=== PATIENT | male | born 1940 | race Caucasian/White ===

== ENCOUNTER 2018-01-23 09:48 | Observation (INO) ==
--- NOTE | 2018-01-23 17:28 | NM ---
EXAM DATE: 01/23/2018 4:43 PM EDT AGE/SEX: 78 years / Male INDICATIONS: Dyspnea. CLINICAL DATA: This is the patient's initial encounter. Patient reports that signs and symptoms have been present for 4 - 6 days and indicates a pain score of 0/10. MEDICAL/SURGICAL HISTORY: Alzheimer's disease. Pulmonary embolism. Prostatectomy. COMPARISON: No prior exams available for comparison. DOSE: 1 mCi Tc99m DTPA aerosol 8.4 mCi Tc99m MAA IV TECHNIQUE: Following five minutes of tidal breathing of DTPA aerosol, planar images of the lungs wer e performed in eight projections. The patient was then injected with MAA, and eight-view perfusion s can was performed. FINDINGS: There is a homogeneous pattern of aerosol delivery to the periphery of both lungs. No focal ventilat ory defects are seen. There is some decreased perfusion in the posterior medial right lung. The perfusion defect is larger than the ventilatory defect, but it is solitary. No other obvious perfusion defects are identified. CONCLUSION: 1. Solitary perfusion defect involving the posterior medial right lung, clearly out of proportion to the ventilatory defect. Isolated mismatch, indeterminate study for PE. Electronically signed by: Geo Woo MD 01/23/2018 5:27 PM EDT
[2018-01-23 18:29] LABS: Creatine Kinase 124 U/L (39-308)
[2018-01-23] MEDS: Sod Chloride 0.9% Inj 1,000 ML IV.CONT SCH (18:47)
[2018-01-23] MEDS ORDERED: Dextrose 50% in Water 50 ML Vial IV.PUSH PRN (19:14)
--- NOTE | 2018-01-23 19:25 | P.HPIM ---
History of Present Illness Primary Care Physician: UNKNOWN History of Present Illness: Mr. Ayala is a 78-year-old male. He has a past medical history of pulmonary embolism. Additionally, due to this, he is on Coumadin at baseline. The patient has early dementia and per himself and his family taking his medications on a regular basis has been a problem. INR is 1.0 today. He came in secondary to shortness of breath, cough, and chest pressure. D-dimer was elevated. CT scan could not be obtained due to reported allergy to iodine. Patient was sent to the [facility] for VQ scan. VQ scan was obtained and shows an intermediate risk for pulmonary embolism. His prior history of PE could represent findings seen on image. The area of poor perfusion is small. Either way, treatment would be the same which is maintaining his INR at a therapeutic level. No other complaints. He has full resolution of symptoms when seen. - Diagnosis (1) Acute dyspnea (2) Chest pain Review of Systems Constitutional: No fevers, no chills no night sweats, no fatigue, no weakness Eyes: No eye pain, no blurry vision, no loss of vision ENT: No sore throat, no ear pain, no rhinorrhea Cardiovascular: No chest pain, no tachycardia, no palpitations, no syncope Respiratory: No wheezing, cough, shortness of breath Gastrointestinal: No abdominal pain, no black tarry stools, no bright red blood per rectum, no vomiting, no diarrhea Musculoskeletal: No joint pain, no muscle cramps, no stiffness Integumentary: No rash, no ulcers, no drainage Neurologic: No sensory loss, no loss of motor function, no dizziness Psychiatric: No behavioral changes, no hallucinations, no suicidal ideations [facility] - History History Provided By: Patient, Family Member - Medical History Medical History: Medical History (Last Updated 01/23/18 @ 10:25 by Teresa Veras RN) Alzheimer disease High cholesterol Hx of colonic polyps Hx of pulmonary embolus Prostate disease - Surgical History Surgical History: Surgical History (Last Updated 01/23/18 @ 10:25 by Teresa Veras RN) History of prostate surgery - Family History Family History: Family History (Last Updated 01/23/18 @ 19:21 by Stephane Lujan MD) Other Prostate cancer Stroke - Tobacco History Second Hand Smoke Exposure: No Tobacco Use In Past 30 Days: No Smoking Status: Former smoker Tobacco Type: Cigarettes - Alcohol History How Often Do You Have a Drink Containing Alcohol: Never - Substance Use History Substance History: No History of Abuse Medications and Allergies Active Medications: Active Medications Al Hydroxide/Mg Hydroxide (Milk Of Magnphil Liq) 30 ml PO Q12H PRN PRN Reason: Mild Constipation Aspirin (Aspirin) 325 mg PO DAILY [facility] Atorvastatin Calcium (Lipitor) 20 mg PO HS [facility] Dextrose (D50w Vial) 50 ml IV.PUSH UNSCH PRN PRN Reason: PER HYPOGLYCEMIA PROTOCOL Glucagon (Glucagon Inj) 1 mg OTHER PRN PRN PRN Reason: for Hypoglycemia Protocol Sodium Chloride (Ns Inj) 1,000 mls @ 100 mls/hr IV.CONT .Q10H [facility] Last Admin: 01/23/18 18:47 Dose: 100 mls/hr Insulin Aspart (Novolog Insulin Correctional Sugar Inj) 0 unit SQ ACHS BHARAT; Protocol Memantine (Namenda) 10 mg PO BID [facility] Nitroglycerin (Nitrostat Sl) 0.4 mg SL Q5M PRN PRN Reason: CHEST PAIN Tamsulosin HCl (Flomax) 0.4 mg PO HS [facility] Warfarin Sodium (Coumadin) 5 mg PO DAILY [facility] Allergies Allergy/AdvReac Type Severity Reaction Status Date / Time azithromycin Allergy Anaphylaxis Verified 01/23/18 10:25 benzonatate Allergy Swelling Verified 01/23/18 10:25 [From Tessalpaulo Mercado] of Lip/Tongue/Throat guaifenesin [From Mucinex] Allergy Anaphylaxis Verified 01/23/18 10:25 Iodinated Contrast- Oral and Allergy Anaphylaxis Verified 01/23/18 10:25 IV Dye [Contrast] Home Medications Medication Instructions Recorded Confirmed Type atorvastatin 20 mg PO HS 01/23/18 01/23/18 History memantine 10 mg PO BID 01/23/18 01/23/18 History metformin 500 mg PO HS 01/23/18 01/23/18 History tamsulosin [Flomax] 0.4 mg PO HS 01/23/18 01/23/18 History warfarin [Coumadin] 5 mg PO DAILY 01/23/18 01/23/18 History Exam Vital signs: Vital Signs 01/23/18 16:00 Temperature 97.9 F Pulse Rate 80 Respiratory Rate 20 Blood Pressure 137/80 Pulse Oximetry 95 Intake & Output 01/23/18 01/23/18 01/24/18 06:59 18:59 06:59 Other: # Voids 0 Narrative: GENERAL: NAD, A&Ox3 HEAD: Normocephalic. NECK: Supple, trachea midline. No lymphadenopathy. EYES: No scleral icterus. No injection or drainage. CARDIOVASCULAR: Regular rate and rhythm without murmurs, gallops, or rubs. RESPIRATORY: Breath sounds equal bilaterally. No accessory muscle use. GASTROINTESTINAL: Abdomen soft, non-tender, nondistended. MUSCULOSKELETAL: No cyanosis, or edema. SKIN: Warm and dry. NEURO: No focal neurological deficits. Results - Labs Labs: Cardiac Enzymes 01/23/18 Range/Units 17:26 Total Creatine Kinase 124 (39-308) U/L Troponin I Less than 0.02 L (0.02-0.05) ng/mL - Imaging Impressions Pulmonary Perfusion Imaging 01/23/18 00:00 CONCLUSION: 1. Solitary perfusion defect involving the posterior medial right lung, clearly out of proportion to the ventilatory defect. Isolated mismatch, indeterminate study for PE. Caprini VTE Risk Assessment Caprini VTE Risk Assessment: Moderate/High Risk (score >= 2) Caprini Risk Assessment Model: Point Value = 1 Point Value = 2 Point Value = 3 Point Value = 5 Age 41-60 Minor surgery BMI > 25 kg/m2 Swollen legs Varicose veins or History of unexplained or recurrent spontaneous Oral contraceptives or hormone replacement Sepsis (< 1 month) Serious lung disease, including pneumonia (< 1 month) Abnormal pulmonary function Acute myocardial infarction Congestive heart failure (< 1 month) History of inflammatory bowel disease Medical patient at bed rest Age 61-74 Arthroscopic surgery Major open surgery (> 45 min) Laparoscopic surgery (> 45 min) Malignancy Confined to bed (> 72 hours) Immobilizing plaster cast Central venous access Age >= 75 History of VTE Family history of VTE Factor V Leiden Prothrombin [id number] Lupus anticoagulant Anticardiolipin antibodies Elevated serum homocysteine Heparin-induced thrombocytopenia Other congenital or acquired thrombophilia Stroke (< 1 month) Elective arthroplasty Hip, pelvis, or leg fracture Acute spinal cord injury (< 1 month) Prophylaxis Regimen: Total Risk Factor Score Risk Level Prophylaxis Regimen 0-1 Low Early ambulation 2 Moderate Order ONE of the following: *Sequential Compression Device (SCD) *Heparin 5000 units SQ BID 3-4 Higher Order ONE of the following medications: *Heparin 5000 units SQ TID *Enoxaparin/Lovenox 40 mg SQ daily (WT < 150 kg, CrCl > 30 mL/min) *Enoxaparin/Lovenox 30 mg SQ daily (WT < 150 kg, CrCl > 10-29 mL/min) *Enoxaparin/Lovenox 30 mg SQ BID (WT < 150 kg, CrCl > 30 mL/min) AND/OR *Sequential Compression Device (SCD) 5 or more Highest Order ONE of the following medications: *Heparin 5000 units SQ TID (Preferred with Epidurals) *Enoxaparin/Lovenox 40 mg SQ daily (WT < 150 kg, CrCl > 30 mL/min) *Enoxaparin/Lovenox 30 mg SQ daily (WT < 150 kg, CrCl > 10-29 mL/min) *Enoxaparin/Lovenox 30 mg SQ BID (WT < 150 kg, CrCl > 30 mL/min) AND *Sequential Compression Device (SCD) Assessment and Plan - Assessment (1) Acute dyspnea Code(s): R06.00 - Dyspnea, unspecified Status: Acute (2) Chest pain Code(s): R07.9 - Chest pain, unspecified Status: Acute - Plan 78-year-old male admitted secondary to acute cough and shortness of breath Acute cough Acute shortness of breath History of pulmonary embolism Hypertherapeutic INR Intermediate findings on VQ scan Cover with heparin Low INR levels likely secondary to poor compliance related to dementia Provide Coumadin at 5 mg daily Follow INR Obtain echocardiogram Chest pain Evaluate for ACS Follow cardiac enzymes Aspirin daily When necessary oxygen When necessary morphine for pain. When necessary nitroglycerin Follow on telemetry Alzheimer disease High cholesterol Hx of colonic polyps Prostate disease No change to other baseline treatments No exacerbations of these conditions DVT prophylaxis Heparin Coumadin H&P: Quality - VTE Deep Vein Thrombosis/Pulmonary Embolism Present on Admission: No
[2018-01-23] MEDS: Insulin NovoLOG Aspart Correctional Sugar Inj SQ SCH (21:59)
[2018-01-23] MEDS: Heparin - SQ 10,000 UNITS/ML Vial SQ SCH (22:06)
[2018-01-23 23:24] LABS: Creatine Kinase 153 U/L (39-308)
[2018-01-24] MEDS: Sod Chloride 0.9% Inj 1,000 ML IV.CONT SCH ×4 (03:30→20:30)
[2018-01-24 06:43] LABS: Baso % (Auto) 0.2 % (0.0-2.0); Hematocrit 38.6 % (39.0-51.0); Hemoglobin 13.5 gm/dL (13.0-17.0); Lymph % (Auto) 7.3 % (9.0-44.0); Mean Corpuscular Hemoglobin 30.2 pg (27.0-34.0); Mean Corpuscular Volume 86.2 fL (80.0-100.0); Mean Platelet Volume 8.2 fL (7.0-11.0); Mono # (Auto) 0.9 th/mm3 (0.0-0.9); Mono % (Auto) 6.8 % (0.0-8.0); Neut # (Auto) 11.9 th/mm3 (1.8-7.7); Neut % (Auto) 85.7 % (16.0-70.0); Platelet Count 311 th/mm3 (150-450); Red Blood Count 4.48 mil/mm3 (4.50-5.90); White Blood Count 13.8 th/mm3 (4.0-11.0)
[2018-01-24 07:01] LABS: Alanine Aminotransferase 19 U/L (12-78); Albumin 2.7 g/dL (3.4-5.0); Anion Gap 6 meq/L (5-15); Aspartate Aminotransferase 13 U/L (15-37); Blood Urea Nitrogen 18 mg/dL (7-18); Calcium 8.2 mg/dL (8.5-10.1); Carbon Dioxide 24.7 meq/L (21.0-32.0); Chloride 109 meq/L (98-107); Cholesterol 183 mg/dL (120-200); Glomerular Filtration Rate 63 mL/min (>89); Glucose,Random 128 mg/dL (74-106); Potassium 4.1 meq/L (3.5-5.1); Sodium 140 meq/L (136-145); Triglycerides 85 mg/dL (42-150)
[2018-01-24 07:04] LABS: Alkaline Phosphatase 76 U/L (45-117); HDL Cholesterol 36.6 mg/dL (40.0-60.0); LDL Cholesterol,Calculated 129 mg/dL (0-99); Total Protein 7.2 g/dL (6.4-8.2)
[2018-01-24] MEDS: Insulin NovoLOG Aspart Correctional Sugar Inj SQ SCH ×4 (09:18→21:14)
[2018-01-24] MEDS: Heparin - SQ 10,000 UNITS/ML Vial SQ SCH (09:23)
--- NOTE | 2018-01-24 15:34 | P.PNIM ---
Subjective Interval history: Patient is chest pain-free. He does not have any specific complaints this morning. Physical Exam Vital signs: Vital Signs 01/23/18 16:00 01/23/18 20:00 01/24/18 03:30 Temperature 97.9 F 97.9 F 97.5 F L Pulse Rate 80 80 72 Respiratory Rate 20 21 20 Blood Pressure 137/80 132/66 144/74 H Pulse Oximetry 95 92 L 100 01/24/18 07:54 01/24/18 08:00 01/24/18 08:58 Temperature 97.9 F Pulse Rate 78 78 72 Respiratory Rate 16 Blood Pressure 163/90 H Pulse Oximetry 97 01/24/18 13:00 Temperature 98.0 F Pulse Rate 80 Respiratory Rate 16 Blood Pressure 151/80 H Pulse Oximetry 96 Intake & Output 01/23/18 01/24/18 01/24/18 18:59 06:59 18:59 Intake Total 1000 / 1000 550 / 550 Balance 1000 / 1000 550 / 550 Intake: IV 1000 / 1000 550 / 550 NS Inj 1,000 ML @ 100 mls/hr IV 1000 / 1000 550 / 550 .CONT .Q10H [facility] Rx#:[id number] Other: # Voids 2 Narrative: General patient in no acute distress HEENT extraocular movements are intact, clear oropharyngeal mucosa, no JVD Cardiovascular S1-S2 audible, RRR, no murmurs rubs or gallops Respiratory clear to auscultation bilaterally Abdomen soft, nontender, nondistended, normal bowel sounds Extremities no edema 2+ distal pulses in bilateral upper and lower extremities Neuro patient is ambulatory. No neurological deficits. Results - Labs CBC & Chem 7: 01/24/18 05:30 01/24/18 05:30 Laboratory Results - last 24 hr 01/23/18 01/23/18 01/23/18 17:26 19:13 20:51 WBC RBC Hgb Hct MCV MCH MCHC RDW Plt Count MPV Neut % (Auto) Lymph % (Auto) [place] % (Auto) Eos % (Auto) Baso % (Auto) Neut # (Auto) Lymph # (Auto) [place] # (Auto) Eos # (Auto) Baso # (Auto) WBC Differential Differential Comment Sodium Potassium Chloride Carbon Dioxide Anion Gap BUN Creatinine Estimated GFR POC Glucose 171 H 264 H Random Glucose Calcium Total Bilirubin AST ALT Alkaline Phosphatase Total Creatine Kinase 124 Troponin I Less than 0.02 L Total Protein Albumin Triglycerides Cholesterol LDL Cholesterol, Calc HDL Cholesterol Cholesterol/HDL Ratio 01/23/18 01/24/18 01/24/18 22:40 05:30 05:30 WBC 13.8 H RBC 4.48 L Hgb 13.5 Hct 38.6 L MCV 86.2 MCH 30.2 MCHC 35.0 RDW 13.0 Plt Count 311 MPV 8.2 Neut % (Auto) 85.7 H Lymph % (Auto) 7.3 L [place] % (Auto) 6.8 Eos % (Auto) 0.0 Baso % (Auto) 0.2 Neut # (Auto) 11.9 H Lymph # (Auto) 1.0 [place] # (Auto) 0.9 Eos # (Auto) 0.0 Baso # (Auto) 0.0 WBC Differential . Differential Comment Auto diff final Sodium 140 Potassium 4.1 Chloride 109 H Carbon Dioxide 24.7 Anion Gap 6 BUN 18 Creatinine 1.12 Estimated GFR 63 L POC Glucose Random Glucose 128 H Calcium 8.2 L Total Bilirubin 0.5 AST 13 L ALT 19 Alkaline Phosphatase 76 Total Creatine Kinase 153 Troponin I Less than 0.02 L Total Protein 7.2 Albumin 2.7 L Triglycerides 85 Cholesterol 183 LDL Cholesterol, Calc 129 H HDL Cholesterol 36.6 L Cholesterol/HDL Ratio 5.00 01/24/18 01/24/18 09:00 12:08 WBC RBC Hgb Hct MCV MCH MCHC RDW Plt Count MPV Neut % (Auto) Lymph % (Auto) [place] % (Auto) Eos % (Auto) Baso % (Auto) Neut # (Auto) Lymph # (Auto) [place] # (Auto) Eos # (Auto) Baso # (Auto) WBC Differential Differential Comment Sodium Potassium Chloride Carbon Dioxide Anion Gap BUN Creatinine Estimated GFR POC Glucose 114 H 130 H Random Glucose Calcium Total Bilirubin AST ALT Alkaline Phosphatase Total Creatine Kinase Troponin I Total Protein Albumin Triglycerides Cholesterol LDL Cholesterol, Calc HDL Cholesterol Cholesterol/HDL Ratio - Imaging Impressions Pulmonary Perfusion Imaging 01/23/18 00:00 CONCLUSION: 1. Solitary perfusion defect involving the posterior medial right lung, clearly out of proportion to the ventilatory defect. Isolated mismatch, indeterminate study for PE. Assessment and Plan - Assessment (1) Acute dyspnea Code(s): R06.00 - Dyspnea, unspecified Status: Acute (2) Chest pain Code(s): R07.9 - Chest pain, unspecified Status: Acute - Plan This patient is a 78-year-old male with a diagnosis of diabetes, hypertension, and a history of pulmonary embolus and lower extremity DVT. The patient takes Coumadin at home however as per the patient's daughter he is noncompliant with his medications. He was sent to our facility after complaints of having some shortness of breath on exertion and atypical type chest pain. 1. Chest pain atypical 2. History of pulmonary embolus and DVT. The patient is now chest pain-free and has no complaints of chest pain or shortness of breath. Initial set of cardiac enzymes and troponins are negative. I will follow-up with another set of cardiac enzymes and troponins. EKG shows normal sinus rhythm with no acute ST segment or T wave changes. Patient also had some complaints of shortness of breath. CTA of the chest was unable to be done as the patient is allergic to iodine. VQ scan was done which did show a defect however this could be due to the patient's previous pulmonary embolus. Regardless the patient will need to be on anticoagulation. The patient's been noncompliant with Coumadin and his INR on the day prior to admission was 1.0. I have started the patient on subcutaneous Lovenox twice daily and he will be continued on Coumadin. I will follow-up an INR tomorrow a.m. I discussed the patient's case in detail with the patient's daughter who lives with the patient. She says that she will help him with his medications from now on. I called the patient's primary care physician's office Dr. Cowan and scheduled an appointment for him for Monday morning. We will follow the patient's cardiac enzymes and troponins. The patient will most likely be discharged tomorrow a.m. on Lovenox and Coumadin and he can follow-up with an INR on Monday during his PCP clinic visit if his cardiac workup is negative. 3. Diabetes mellitus type 2 Continue low-dose insulin sliding scale. We will continue monitor Accu-Cheks. His diabetes medication regimen will be adjusted as needed. 4. Hypertension Patient started on Norvasc. We will continue monitor the patient's blood pressure and adjust medications as needed. The patient serum creatinine remains stable he may be started on an YUNI inhibitor given the patient's diagnosis of diabetes. DVT prophylaxis: patient is on Lovenox and Coumadin
[2018-01-24] MEDS ORDERED: Warfarin Consult Pharmacy OTHER PRN (15:36)
[2018-01-24] MEDS: Aspirin 325 MG Tablet PO SCH (16:07)
[2018-01-24] MEDS: amLODIPine 5 MG Tablet PO SCH (16:07)
--- NOTE | 2018-01-24 16:51 | ECHRPT ---
Indication: SOB CONCLUSIONS Mildly dilated left ventricle. Wall thickness is normal. The left ventricular systolic function is normal with an estimated ejection fraction in the range of 55-60%. [id number] mitral valve regurgitation. Aortic valve sclerosis is present. The estimated pulmonary arterial pressure is 29 mmHg. There is a trivial pericardial effusion present. BP: / HR: Rhythm: Technical Quality: FINDINGS LEFT VENTRICLE Mildly dilated left ventricle. Wall thickness is normal. The left ventricular systolic function is normal with an estimated ejection fraction in the range of 55-60%. RIGHT VENTRICLE Normal right ventricular size and systolic function. LEFT ATRIUM The left atrial size is normal. RIGHT ATRIUM The right atrial size is normal. ATRIAL SEPTUM Normal atrial septal thickness without atrial level shunting by limited color doppler interrogation. AORTA The aortic root and proximal ascending aorta are normal in size on limited imaging. MITRAL VALVE [id number] mitral valve regurgitation. AORTIC VALVE Aortic valve sclerosis is present. TRICUSPID VALVE The estimated pulmonary arterial pressure is 29 mmHg. PULMONARY VALVE The pulmonary valve is not well visualized. VESSELS The inferior vena cava is normal in size. PERICARDIUM There is a trivial pericardial effusion present. Jonathan Mills MD, FACC (Electronically Signed) Final Date:24 January 2018 16:51
--- NOTE | 2018-01-24 18:10 | ECG ---
Date Performed: 01/23/2018 Time Performed: 17:34:04 PTAGE: 78 years EKG: Sinus rhythm WITH FIRST DEGREE AV BLOCK ABNORMAL ECG NO PREVIOUS TRACING DOCTOR: Geoffrey Moctezuma Interpretating Date/Time 01/24/2018 18:17:28
[2018-01-24] MEDS: Enoxaparin Inj 100 MG/ML Syringe SQ SCH (20:30)
[2018-01-25] MEDS: Sod Chloride 0.9% Inj 1,000 ML IV.CONT SCH (06:26)
[2018-01-25] MEDS: Insulin NovoLOG Aspart Correctional Sugar Inj SQ SCH ×2 (08:18→12:14)
[2018-01-25 08:24] VITALS: BP 145/66; RESP 16; TEMP 98; O2SAT 92
[2018-01-25 09:02] VITALS: PULSE 69
[2018-01-25 09:05] LABS: Prothrombin Time 10.5 sec (9.8-11.6)
[2018-01-25] MEDS: Enoxaparin Inj 100 MG/ML Syringe SQ SCH (09:22)
[2018-01-25] MEDS: Aspirin 325 MG Tablet PO SCH (09:22)
[2018-01-25] MEDS: amLODIPine 5 MG Tablet PO SCH (09:22)
--- NOTE | 2018-01-25 18:34 | P.DS ---
Date of admission: 01/23/18 16:17 Primary care physician: UNKNOWN Brief History from admission: Mr. Ayala is a 78-year-old male. He has a past medical history of pulmonary embolism. Additionally, due to this, he is on Coumadin at baseline. The patient has early dementia and per himself and his family taking his medications on a regular basis has been a problem. INR is 1.0 today. He came in secondary to shortness of breath, cough. D-dimer was elevated. CT scan could not be obtained due to reported allergy to iodine. Patient was sent to the [facility] for VQ scan. VQ scan was obtained and shows an intermediate risk for pulmonary embolism. His prior history of PE could represent findings seen on image. The area of poor perfusion is small. Either way, treatment would be the same which is maintaining his INR at a therapeutic level. No other complaints. He has full resolution of symptoms when seen. DS: Diagnosis - Discharge Diagnosis (1) Acute dyspnea Status: Acute (2) Chest pain Status: Acute DS: Medications - Discharge Medications Prescriptions: amlodipine [Norvasc] 10 mg PO DAILY #30 tab aspirin 81 mg PO DAILY #30 tab enoxaparin [Lovenox] 100 mg SUBCUT Q12HR #14 syr warfarin [Coumadin] 7.5 mg PO DAILY@1600 #7 tab DS: Summary Hospital Course: This patient is a 78-year-old male with a diagnosis of diabetes, hypertension, and a history of pulmonary embolus and lower extremity DVT. The patient takes Coumadin at home however as per the patient's daughter he is noncompliant with his medications. He was sent to our facility after complaints of having some shortness of breath on exertion. 1. History of pulmonary embolus and DVT. 2. Chest pain likely secondary to costochondritis. Patient presented with the symptoms mentioned above. He was noncompliant with his medications at home and has a history of DVT and pulmonary embolus. He had some shortness of breath on exertion and some reproducible chest pain on physical examination which I believe was costochondritis. An EKG was done which showed normal sinus rhythm no acute ST segment or T wave changes. Cardiac enzymes and troponins were negative. No significant events were noted on telemetry. The patient was chest pain-free after initial evaluation in the emergency department. A VQ scan was done which did come back abnormal however that could be due to a previous pulmonary embolus. CTA was unable to be done given the patient's allergy to iodine. The patient was started on Lovenox and Coumadin in house. Currently he is on Coumadin 7.5 mg p.o. daily and Lovenox 100 mg subcu twice daily. I had a discussion with the patient's daughter at bedside and she says that she will now monitor the patient and make sure he takes his medications on time. He will be discharged today with the medications mentioned above. I called Dr. Alonzo's office and have schedule appointment for tomorrow 01/26/2018 with the patient's primary care doctor. An INR should be checked tomorrow. Current INR as of today is 1.0. Specific instructions on how the patient should receive Lovenox were given to the patient as well as the patient's daughter. Goal INR is between 2 and 3 and once the goal INR has been met Lovenox should be discontinued and the patient's Coumadin should be adjusted to maintain the INR goal. The patient will need routine monitoring of his PT/INR which can be done outpatient. Patient understands the risks and benefits of being on anticoagulation were discussed with the patient and the patient's daughter and they agrees to continue anticoagulant. 3. Diabetes mellitus type 2 Continue home medications for diabetes mellitus type 2. Patient can continue to follow-up with his primary care physician for management of diabetes mellitus type 2. 4. Hypertension Patient started on Norvasc. Patient was advised to monitor his blood pressure at home. He should present a blood pressure log to his primary care physician and his blood pressure medications can be adjusted as needed. If the patient's renal function remains stable he should be started on an YUNI inhibitor given his diagnosis of diabetes. - Time Spent with Patient Total time spent providing and/or coordinating discharge services: Greater than 30 minutes - Quality: VTE Deep Vein Thrombosis/Pulmonary Embolism Present on Admission: No Exam Vital signs: Vital Signs 01/24/18 20:00 01/25/18 00:00 01/25/18 08:00 Temperature 97.8 F 97.4 F L 98.0 F Pulse Rate 79 67 70 Respiratory Rate 19 18 16 Blood Pressure 156/86 H 118/56 L 145/66 H Pulse Oximetry 91 L 92 L 01/25/18 09:01 Temperature Pulse Rate 69 Respiratory Rate Blood Pressure Pulse Oximetry Intake & Output 01/24/18 01/25/18 01/25/18 18:59 06:59 18:59 Intake Total 550 / 550 1999 / 1999 300 / 300 Balance 550 / 550 1999 300 / 300 Weight 95.254 kg 94.801 kg Intake: IV 550 / 550 1999 / 1999 300 / 300 NS Inj 1,000 ML @ 100 mls/hr IV 550 / 550 1999 / 2000 300 / 300 .CONT .Q10H BHARAT Rx#:[id number] Other: # Voids 4 3 Weight On Admission 95.254 kg Narrative: General patient in no acute distress HEENT extraocular movements are intact, clear oropharyngeal mucosa, no JVD Cardiovascular S1-S2 audible, RRR, no murmurs rubs or gallops Respiratory clear to auscultation bilaterally Abdomen soft, nontender, nondistended, normal bowel sounds Extremities no edema 2+ distal pulses in bilateral upper and lower extremities Neuro no neurological deficits. Results Procedures completed during hospitalization: VQ scan Labs on day of discharge: Labs from last 24 hours 01/25/18 01/25/18 01/24/18 07:49 07:46 20:25 PT 10.5 INR 1.0 POC Glucose 91 164 H - Impressions ITS Impressions Pulmonary Perfusion Imaging 01/23/18 00:00 CONCLUSION: 1. Solitary perfusion defect involving the posterior medial right lung, clearly out of proportion to the ventilatory defect. Isolated mismatch, indeterminate study for PE. Discharge Plan - Discharge Disposition Patient Disposition: 01 Discharge Home - Discharge Condition Condition: Good - Discharge Order Discharge Orders: Discharge Order (Routine); Ordered 01/25/18 Ordered By: Nagi Camacho - Physicians Team Primary Care Provider: UNKNOWN, Attending Provider: Nagi Camacho - Rxs /Orders / Referrals /Forms Prescriptions: New amlodipine [Norvasc] 5 mg Tablet 10 mg PO DAILY Qty: 30 RF: 0 aspirin 81 mg Tablet,Chewable 81 mg PO DAILY Qty: 30 RF: 0 enoxaparin [Lovenox] 100 mg/mL Syringe 100 mg subcut Q12HR Qty: 14 RF: 0 warfarin [Coumadin] 7.5 mg Tablet 7.5 mg PO DAILY@1600 Qty: 7 RF: 0 Continue atorvastatin 20 mg Tablet 40 mg PO HS memantine 10 mg Tablet 10 mg PO BID metformin 500 mg Tablet 500 mg PO HS tamsulosin [Flomax] 0.4 mg Capsule 0.4 mg PO HS Discontinued warfarin [Coumadin] 5 mg Tablet 5 mg PO DAILY Referrals: UNKNOWN, [Primary Care Provider] - See Instructions - Discharge Instructions Patient Printed Instructions: Warfarin (By mouth), Aspirin (By mouth), Amlodipine (By mouth), Enoxaparin (By injection), Angina (DC), How to Give a Subcutaneous Injection (DC), Dyspnea (DC)
[2018-01-26] MEDS ORDERED: Lisinopril 5 MG Tablet PO SCH (09:00)
== END 2018-01-25 12:07 | disposition home or self-care (01) ==
LOC: NEPGCP 09:48 → NEDDLT 09:48
PROVIDERS: ADMIT Hospitalist; ATTEND Hospitalist